=== PATIENT | male | born 2000 | race Caucasian/White ===

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

== ENCOUNTER 2020-02-21 20:08 | Emergency (ER) | payer MEDICAID, OTHER ==
[~2020-02-21] VITALS: Ht 162.6 cm; Wt 67.0 kg
[2020-02-21 20:25] VITALS: BP 132/85
[2020-02-21] MEDS ORDERED: DIPH,PERTUSS(ACELL),TET VAC/PF 0.5 ML IM-VACC ONE ×2 (20:30→22:07)
[2020-02-21] MEDS ORDERED: LIDOCAINE-MPF 1%, 5ML INFIL ONE (20:30)
[2020-02-21] MEDS ORDERED: LIDOCAINE-MPF 1%, 5ML ONE (22:07)
[2020-02-21] MEDS ORDERED: NEOSPORIN OINT. PKT 1 PACKET ONE (22:47)
--- NOTE | 2020-02-21 23:13 | NUR ---
DRESSING APPLIED PT EDUCATED ON SUTURE CARE AND REMOVAL PROCESS
== END 2020-02-21 23:14 | disposition home or self-care (01) ==
LOC: ED 22:30
DX: S61.411A Laceration without foreign body of right hand, initial encounter (principal); W45.8XXA Other foreign body or object entering through skin, initial encounter; Y93.89 Activity, other specified; Y92.098 Other place in other non-institutional residence as the place of occurrence of the external cause; Y99.8 Other external cause status
CPT/HCPCS: 12042; 90471; 90715; 99284